=== PATIENT | female | born 1985 | race Hispanic/Latino ===

== ENCOUNTER 2017-05-09 22:37 | Emergency (ER) | payer OTHER ==
[2017-05-09 22:53] VITALS: BP 122/68; PULSE 85; RESP 16; TEMP 98.2; O2SAT 99
--- NOTE | 2017-05-10 01:04 | ED PDOC ---
"HPI: Female Pain Time Seen by Provider: 05/10/17 00:06 Chief Complaint (Nursing): Female Genitourinary Chief Complaint (Provider): abd pain History Per: Patient History/Exam Limitations: no limitations Additional Complaint(s): 31yo F in ED for eval of suprapubic fullness/pain x 1 month-states that she has been given PO abx(bactrim x 3 days, then bactrim x 5 days adn most recent 7 days ago cipro) for suspected UTI, however abx works to help relieve symptoms. for a couple for days and returns to pressure/fullness without urinary freq, urgency or trickling. negative for fever chills nausea vomiting body aches. denies vaginal discharge, bleeding or painful intercourse. Past Medical History Reviewed: Historical Data, Nursing Documentation, Vital Signs Vital Signs: Last Vital Signs Temp 98.2 F 05/09/17 22:46 Pulse 85 05/09/17 22:46 Resp 16 05/09/17 22:46 BP 122/68 05/09/17 22:46 Pulse Ox 99 05/09/17 22:46 - Medical History PMH: No Chronic Diseases - Family History Family History: States: No Known Family Hx - Home Medications Home Medications: Ambulatory Orders Medication Instructions Recorded Ketorolac Tromethamine [Toradol] 10 mg PO TID #20 cap 05/10/17 - Allergies Allergies/Adverse Reactions: Allergies Allergy/AdvReac Type Severity Reaction Status Date / Time No Known Allergies Allergy Verified 05/09/17 22:46 Review of Systems ROS Statement: Except As Marked, All Systems Reviewed And Found Negative Constitutional: Negative for: Fever, Chills Gastrointestinal: Positive for: Abdominal Pain. Negative for: Nausea, Vomiting Genitourinary Female: Negative for: Vaginal Discharge, Vaginal Bleeding, Pelvic Pain Musculoskeletal: Positive for: Back Pain Physical Exam - Reviewed Nursing Documentation Reviewed: Yes Vital Signs Reviewed: Yes - Physical Exam Appears: Positive for: Well, Non-toxic, No Acute Distress Head Exam: Positive for: ATRAUMATIC, NORMAL INSPECTION, NORMOCEPHALIC Skin: Positive for: Normal Color, Warm, DRY Cardiovascular/Chest: Positive for: Regular Rate, Rhythm Respiratory: Positive for: CNT, Normal Breath Sounds Gastrointestinal/Abdominal: Positive for: Normal Exam, Bowel Sounds, Soft, Tenderness (suprapubic pain) Back: Positive for: Normal Inspection. Negative for: L CVA Tenderness, R CVA Tenderness Rectal: Positive for: Deferred Extremity: Positive for: Normal ROM Neurologic/Psych: Positive for: Alert, Oriented - Laboratory Results Result Diagrams: 05/10/17 00:20 05/10/17 00:20 - ECG O2 Sat by Pulse Oximetry: 99 - Progress ED Course And Treament: impression: uti vs pyelo vs STI PT will get STI testing, cbc/cmp/UA and CT of abd/pelvis. will get torodol IV for pain contorl Medical Decision Making Medical Decision Making: ct scan: Lower thorax: The bilateral lung bases are clear. ABDOMEN: Liver: No acute findings. Gallbladder and bile ducts: The gallbladder is decompressed. No calcified stones. No significant intra- or extrahepatic biliary ductal dilation. Pancreas: Enhances homogeneously. No ductal dilation. No discrete mass. Spleen: No acute findings. Adrenals: No acute findings. Kidneys and ureters: No acute findings. No hydronephrosis or renal calculi. No discrete solid mass. PELVIS: Bladder: No acute findings. Reproductive: A 4 cm fluid attenuation focus is identified within the left ovary , statistically a cyst. Appendix: The air filled appendix is of normal caliber (series 2, image 67). [facility] | Preliminary Radiology Report [employer] (QA) DISCREPANCY? If there is a discrepancy between the preliminary and final interpretation, please notify [facility] via [email or web address]. If you do not have access to our QA portal, call our QA team at [phone] CONFIDENTIALITY STATEMENT This report is intended only for the use of the referring physician, and only in accordance with law, If you received this in error, call [phone] Page 2 of 2 ABDOMEN and PELVIS: Stomach and bowel: No obstruction. No mucosal thickening. Peritoneum: No significant fluid collection. No free air. Lymph nodes: No pathologically enlarged lymph nodes. Vasculature: Unremarkable. Bones: No acute fracture. IMPRESSION: Left ovarian (likely) cyst, as detailed above. Thank you for allowing us to participate in the care of your patient. US shows UTI. PT declined STI testing pt given [place] IV 1 gm in ED advised to have pmd f.u cx urine sent stable VS and well appearing. Disposition - Clinical Impression Clinical Impression: Urinary tract infection - Patient ED Disposition Is Patient to be Admitted: No Counseled Patient/Family Regarding: Studies Performed, Diagnosis, Need For Followup, Rx Given - Disposition Referrals: [facility] [Outside] Disposition: Routine/Home Disposition Time: 02:41 Condition: GOOD Prescriptions: Ketorolac Tromethamine [Toradol] 10 mg PO TID #20 cap Instructions: Urinary Tract Infection in Women (ED)"
[2017-05-10 01:14] LABS: BASO # 0.1 K/uL (0.0-0.2); BASO % 0.8 % (0.0-2.0); EOS # 0.5 K/uL (0.0-0.7); EOS % 4.9 % (0.0-4.0); HEMOGLOBIN 12.4 g/dL (12.0-16.0); LYMPH # 3.4 K/uL (1.0-4.3); LYMPH % 34.4 % (20.0-40.0); MEAN CELL VOLUME 80.3 fl (81.0-99.0); MEAN CORPUSCULAR HEMOGLOBIN 26.1 pg (27.0-31.0); MEAN CORPUSCULAR HGB CONC 32.5 g/dL (33.0-37.0); MONO # 0.7 K/uL (0.0-0.8); MONO % 7.4 % (0.0-10.0); NEUT # 5.1 K/uL (1.8-7.0); NEUT % 52.5 % (50.0-75.0); RBC 4.74 Mil/uL (3.80-5.20); RED CELL DISTRIBUTION WIDTH 14.4 % (11.5-14.5); WHITE BLOOD COUNT 9.8 K/uL (4.8-10.8)
[2017-05-10 01:38] LABS: ALB/GLOB RATIO 1.5 (1.0-2.1); ALBUMIN 4.3 g/dL (3.5-5.0); ALT/SGPT 24 U/L (9-52); AST/SGOT 21 U/L (14-36); BLOOD UREA NITROGEN 16 mg/dl (7-17); CALCIUM 9.2 mg/dL (8.4-10.2); GFR AFRICAN-AMERICAN > 60; GFR NON-AFRICAN AMERICAN > 60
[2017-05-10 01:47] LABS: SQUAMOUS EPITHIAL 1 /hpf (0-5); URINE BACTERIA OCC (<OCC); URINE BILIRUBIN NEGATIVE (NEGATIVE); URINE BLOOD NEGATIVE (NEGATIVE); URINE CLARITY CLEAR (Clear); URINE COLOR AMBER (YELLOW); URINE GLUCOSE (UA) NEG (Normal); URINE LEUKOCYTE ESTERASE NEG Leu/uL (Negative); URINE NITRATE POSITIVE (NEGATIVE); URINE PROTEIN NEGATIVE (NEGATIVE)
[2017-05-10] MEDS ORDERED: Iohexol 300 100 ML IJ ONE (01:49)
[2017-05-10] MEDS ORDERED: Sodium Chloride 0.9% 50 ML IV ONE (01:49)
[2017-05-10] MEDS ORDERED: cefTRIAXone (Rocephin) 1 gm Inj ONE (02:25)
--- NOTE | 2017-05-10 11:16 | CT ---
PROCEDURE: CT abdomen pelvis dated 05/10/2017 HISTORY: suprapubic pain COMPARISON: None. TECHNIQUE: Contiguous axial images of the abdomen and pelvis. Oral contrast was administered. No IV contrast given. Coronal and Sagittal reformats generated. Radiation dose: Total exam DLP = 621.18 mGy-cm. This CT exam was performed using one or more of the following dose reduction techniques: Automated exposure control, adjustment of the mA and/or kV according to patient size, and/or use of iterative reconstruction technique. FINDINGS: LOWER THORAX: Lung bases are clear. No infiltrate effusion or basilar pneumothorax. Tiny hiatal hernia. LIVER: Liver exhibits normal size measuring approximately 13.4 cm in CC dimension. No obvious hepatic mass collection or calcification. Portal and splenic veins are opacified. GALLBLADDER AND BILE DUCTS: Gallbladder appears contracted likely due to nonfasting state which also presumably accounts for slight thick-walled appearance. Possibility of an inflammatory process not excluded. PANCREAS: Unremarkable. No mass. No ductal dilatation. SPLEEN: Spleen exhibits normal size and attenuation pattern without mass collection or calcification. ADRENALS: No adrenal lesions. KIDNEYS AND URETERS: Unremarkable. No stone or hydronephrosis. BLADDER: Urinary bladder is incompletely distended which may account for slight thick-walled appearance. Cystitis not excluded. Go REPRODUCTIVE: There is an approximately 4.0 cm elliptical shaped low-attenuation focus left adnexal region probably representing in adnexal cyst. There may also be 1 or 2 adjacent smaller of cysto of follicles. Small amount of free fluid is present within the pelvis. APPENDIX: Normal-appearing appendix best seen on axial image number [id number]. No periappendiceal inflammatory changes. BOWEL: Evaluation of the bowel is limited due to the lack of oral contrast material. The stomach is distended with food debris and air. Visualized loops of small bowel exhibit normal contour and caliber. No evidence acute mechanical small bowel obstruction. There is a moderately large amount of stool seen within the cecum at ascending and transverse and to a lesser degree proximal descending colon consistent with mild constipation. PERITONEUM: Small amount of free fluid is present within the pelvis. No free air. Tiny fat containing umbilical hernia. LYMPH NODES: Unremarkable. No enlarged lymph nodes. VASCULATURE: Unremarkable. No aortic aneurysm. BONES: No minor multilevel degenerative spondylosis of the lower thoracic spine there is also a subtle levoscoliosis centered at the L1-L2 level possibly due to patient positioning OTHER FINDINGS: None. IMPRESSION: Probable small left adnexal cyst with small amount of free fluid in the cul de sac. Pelvic ultrasound followup could be performed confirm. Incompletely distended urinary bladder which presumably accounts for slight thick-walled appearance. Possibility of a cystitis not excluded. Mild constipation. Gallbladder is contracted likely due to nonfasting state however the possibility of inflammatory process not excluded.
== END 2017-05-10 03:43 | disposition home or self-care (01) ==
LOC: MERGE 22:37 → H.ER 22:37 → EDBD 22:37 → H.ER 05-10 03:43
DX: N39.0 Urinary tract infection, site not specified (principal)